=== PATIENT | female | born 1975 | race Caucasian/White ===

== ENCOUNTER 2021-07-06 20:56 | Emergency (ER) | payer BC ==
[2021-07-06 21:34] LABS: BASOPHILS # (AUTO) 0.1 10^3/uL (0.0-0.1); BASOPHILS % (AUTO) 1.1 %; EOSINOPHILS # (AUTO) 0.2 10^3/uL (0.0-0.7); EOSINOPHILS % (AUTO) 2.4 %; HCT - HEMATOCRIT 43.2 % (37.0-47.0); HGB - HEMOGLOBIN 13.8 g/dL (12.0-16.0); LYMPHOCYTES # (AUTO) 3.5 10^3/uL (1.5-3.5); LYMPHOCYTES % (AUTO) 48.8 %; MEAN CORPUSCULAR HEMOGLOBIN 28.9 pg (27.0-31.0); MEAN CORPUSCULAR HGB CONC 31.9 g/dL (32.0-36.0); MEAN CORPUSCULAR VOLUME 90.4 fL (81.0-99.0); MEAN PLATELET VOLUME 11.1 fL (7.9-10.8); MONOCYTES # (AUTO) 0.5 10^3/uL (0.0-1.0); MONOCYTES % (AUTO) 6.8 %; NEUTROPHILS # (AUTO) 2.9 10^3/uL (1.5-6.6); NEUTROPHILS % (AUTO) 40.8 %; PLT - PLATELET COUNT 270 10^3/uL (130-450); RED BLOOD COUNT 4.78 10^6/uL (4.20-5.40); RED CELL DISTRIBUTION WIDTH 13.7 % (12.0-15.0); WHITE BLOOD COUNT 7.2 x10^3/uL (4.8-10.8)
[2021-07-06 21:40] LABS: BILIRUBIN,URINE NEGATIVE (NEGATIVE); GLUCOSE, URINE (UA) NEGATIVE (NEGATIVE); KETONES,URINE (UA) NEGATIVE (NEGATIVE); LEUKOCYTE ESTERASE, URINE NEGATIVE (NEGATIVE); NITRITE,URINE NEGATIVE (NEGATIVE); OCCULT BLOOD,URINE SMALL (NEGATIVE); PROTEIN,URINE NEGATIVE (NEGATIVE); UROBILINOGEN,URINE 0.2 (NORMAL) E.U./dL (NORMAL)
[2021-07-06 21:41] LABS: CLARITY,URINE CLEAR (CLEAR); HCG UR QUAL NEGATIVE
[2021-07-06 21:46] LABS: ALBUMIN 4.4 g/dL (3.2-5.5); ALBUMIN/GLOBULIN RATIO 1.3 (1.0-2.2); BILIRUBIN,TOTAL 0.3 mg/dL (0.2-1.0); CALCIUM 9.5 mg/dL (8.5-10.3); POTASSIUM 3.3 mmol/L (3.5-5.0); TOTAL PROTEIN 7.8 g/dL (6.7-8.2)
[2021-07-06 22:00] LABS: BACTERIA,URINE Few /HPF (None Seen); SQUAMOUS EPITHELIAL CELL,UR FEW Squamous (<= Few); WBC,URINE 0-3 /HPF (0-5)
--- NOTE | 2021-07-06 22:16 | ED Physician Documentation ---
PD HPI BACK PAIN - Stated complaint Stated Complaint: LOW BACK PX - Chief complaint Chief Complaint: Abd Pain - History obtained from History obtained from: Patient - History of Present Illness Timing - onset: How many hours ago (2) Timing - details: Abrupt onset Pain level now: 6 Location: Left Quality: Pain Associated symptoms: No: Fever, Hematuria Improves with: Nothing Worsened by: Other (no exacerbating factors) Similar symptoms before: Has not had sx before Recently seen: Not recently seen - Additional information Additional information: c/o sudden onset left flank pain 2 hours [employer] while at home at rest, eating dinner. Nausea but no vomiting. Has not had this pain before. The pain is waxing and waning without apparent exacerbating nor ameliorating factors. Review of Systems Constitutional: reports: Reviewed and negative Cardiac: reports: Reviewed and negative Respiratory: reports: Reviewed and negative GI: reports: Abdominal Pain (left flank pain), Nausea. denies: Vomiting : denies: Dysuria, Frequency, Hematuria PD PAST MEDICAL HISTORY - Past Medical History Past Medical History: Yes Endocrine/Autoimmune: HyPOthyroidism - Past Surgical History Past Surgical History: No - Present Medications Home Medications: Ambulatory Orders Medication Instructions Recorded Confirmed Cranberry Fruit Extract [Cranberry] 07/06/21 Etonogestrel/Ethinyl Estradiol 07/06/21 [Nuvaring Vaginal Ring] Levothyroxine [Synthroid] 100 mcg PO DAILY 07/06/21 07/06/21 Ondansetron Odt [Zofran] 4 mg TL Q6H PRN #14 tablet 07/07/21 Tamsulosin [Flomax] 0.4 mg PO DAILY #10 cap 07/07/21 oxyCODONE/ACET 5/325 [Percocet 5 1 - 2 each PO Q6H PRN #20 tablet 07/07/21 mg/325 mg] - Allergies Allergies/Adverse Reactions: Allergies Allergy/AdvReac Type Severity Reaction Status Date / Time Penicillins Allergy Hives Verified 07/06/21 21:57 Sulfa (Sulfonamide Allergy Hives Verified 07/06/21 21:02 Antibiotics) - Living Situation Living Arrangement: reports: At home - Social History Does the pt smoke?: No Smoking Status: Never smoker PD ED PE NORMAL - Vitals Vital signs reviewed: Yes - General General: Alert and oriented X 3, Well developed/nourished, Other (appears uncomfortable, mild/moderate painful distress that waxes and wanes during H+P) - HEENT HEENT: Moist mucous membranes - Cardiac Cardiac: RRR, No murmur - Respiratory Respiratory: No respiratory distress, Clear bilaterally - Abdomen Abdomen: Soft, Non tender, Non distended - Back Back: No CVA TTP - Derm Derm: Normal color, Warm and dry, No rash Results - Vitals Vitals: Vital Signs - 24 hr 07/06/21 07/06/21 07/06/21 20:58 21:52 22:50 Temperature 36.4 C L Heart Rate 88 93 100 Respiratory 16 18 20 Rate Blood Pressure 159/90 H 124/86 H 140/86 H O2 Saturation 100 96 98 07/07/21 01:05 Temperature 36.6 C Heart Rate 70 Respiratory 14 Rate Blood Pressure 124/70 O2 Saturation 98 Oxygen O2 Source Room air - Labs Labs: Laboratory Tests 07/06/21 07/06/21 07/06/21 21:12 21:27 21:27 WBC 7.2 RBC 4.78 Hgb 13.8 Hct 43.2 MCV 90.4 MCH 28.9 MCHC 31.9 L RDW 13.7 Plt Count 270 MPV 11.1 H Neut # (Auto) 2.9 Lymph # (Auto) 3.5 [place] # (Auto) 0.5 Eos # (Auto) 0.2 Baso # (Auto) 0.1 Absolute Nucleated RBC 0.00 Nucleated RBC % 0.0 Sodium 138 Potassium 3.3 L Chloride 103 Carbon Dioxide 23 Anion Gap 12.0 BUN 15 Creatinine 1.0 Estimated GFR (MDRD) 60 L Glucose 93 Calcium 9.5 Total Bilirubin 0.3 AST 18 ALT 19 Alkaline Phosphatase 38 L Total Protein 7.8 Albumin 4.4 Globulin 3.4 Albumin/Globulin Ratio 1.3 Lipase 39 Urine Color YELLOW Urine Clarity CLEAR Urine pH 6.0 Ur Specific [place] <=1.005 Urine Protein NEGATIVE Urine Glucose (UA) NEGATIVE Urine Ketones NEGATIVE Urine Occult Blood SMALL H Urine Nitrite NEGATIVE Urine Bilirubin NEGATIVE Urine Urobilinogen 0.2 (NORMAL) Ur Leukocyte Esterase NEGATIVE Urine RBC 6-10 H Urine WBC 0-3 Ur Squamous Epith Cells FEW Squamous Urine Bacteria Few Ur Microscopic Review INDICATED Urine Culture Comments NOT INDICATED Urine HCG, Qual NEGATIVE - Rads (name of study) CT A/P Radiology: Prelim report reviewed, See rad report PD MEDICAL DECISION MAKING - ED course Complexity details: reviewed results, re-evaluated patient, considered differential, d/w patient ED course: left flank pain x 2 hours and microscopic hematuria on UA results (without other abnormalities); LMP [address] A/P demonstrates 3 mm left UVJ calculus. She is given IM toradol, IM dilaudid, and TL zofran. On reevaluation, she is resting comfortably and reports excellent symptom relief with these measures. Results reviewed with patient, discussed prognosis and return precautions. She is given a strainer and take-home packs of percocet and zofran. She is also given tamsulosin in ED. Prescriptions for percocet, zofran, and tamsulosin are electronically submitted to her pharmacy of choice. Departure - Departure Disposition: Home, Self Care Clinical Impression: Renal colic on left side Condition: Good Instructions: ED Stone Renal W Colic Follow-Up: Ivan Oliveira MD [Primary Care Provider] - Prescriptions: Tamsulosin [Flomax] 0.4 mg PO DAILY #10 cap oxyCODONE/ACET 5/325 [Percocet 5 mg/325 mg] 1 - 2 each PO Q6H PRN #20 tablet PRN Reason: Pain Ondansetron Odt [Zofran] 4 mg TL Q6H PRN #14 tablet PRN Reason: Nausea / Vomiting Comments: Prescriptions for percocet (narcotic pain medication), ondansetron (anti nausea medication) and tamsulosin (helps pass kidney stones) have been electronically submitted to [facility] pharmacy in [place]. You have a small (3 mm) kidney stone in the left ureter, which is the conduit from the kidney to the bladder. This is a relatively small stone and it is at the end of the ureter, so it is likely to pass on its own rather than needing a procedure to have it removed. You have been provided a strainer, and you can strain your urine until you see the stone. You should contact your primary care provider to arrange for follow up; they might order other tests and they might refer you to a urologist. If you pass the stone, keep it in a container and contact your primary care provider to ask if they want to have the kidney stone sent to a lab for analysis. Discharge Date/Time: 07/07/21 01:10
[2021-07-06] MEDS ORDERED: ONDANSETRON ODT 4 MG TABLET TL STA (22:31)
[2021-07-06] MEDS ORDERED: KETOROLAC 60 MG/2 ML VIAL IM STA (22:31)
[2021-07-06] MEDS ORDERED: HYDROmorphone 1 MG/ML CARPUJECT IM STA (22:31)
--- NOTE | 2021-07-06 23:37 | CT Report ---
PROCEDURE: Abdomen/Pelvis WO INDICATIONS: left flank pain TECHNIQUE: Noncontrast 5 mm thick sections acquired from the diaphragms to the symphysis. 5 mm coronal and sagi ttal reformats were then performed. For radiation dose reduction, the following was used: automated exposure control, adjustment of mA and/or kV according to patient size. COMPARISON: None. FINDINGS: Image quality: Excellent. ABDOMEN: Lung bases: Lung bases are clear. Heart size is normal. Solid organs: Liver and spleen are normal in size. Gallbladder Pancreas is normal in contours. No adrenal nodules. Kidneys are normal in size, without right-sided hydronephrosis or nephrolithia sis. There is, however, mild left-sided hydronephrosis and a punctate mid kidney calculus within the mildl y dilated collecting system. The ureter also is dilated on the left to a mild degree to the lower mar gin of the low left ureter, where a impacted 3 mm calculus can be seen. Peritoneum and bowel: Unenhanced bowel loops demonstrate normal wall thickness and caliber. No free fluid or air. Nodes and vessels: No retroperitoneal or mesenteric adenopathy by size criteria. Aorta and inferior vena cava are normal in caliber. Miscellaneous: No ventral hernias. PELVIS: Genitourinary: Bladder wall thickness is normal. Miscellaneous: No inguinal hernias or adenopathy. Bones: No suspicious bony lesions. No vertebral body compression fractures. IMPRESSION: Impacted distal left ureteral 3 mm calculus causing mild hydronephrosis and hydroureter on the left. There is also a punctate left collecting system nonobstructive calculus estimated to measure approxim ately 1 mm. No other abnormality is found. Reviewed by: Kavin Francis MD on 07/06/2021 11:39 PM PDT Approved by: Kavin Francis MD on 07/06/2021 11:39 PM PDT Station ID: [id number]
[2021-07-07] MEDS ORDERED: TAMSULOSIN 0.4 MG CAPSULE PO STA (00:09)
[2021-07-07] MEDS ORDERED: ONDANSETRON ODT 4 MG Prepack 2 TL PRN (00:48)
[2021-07-07] MEDS ORDERED: oxyCODONE/ACET 5/325 Prepack 4 PO STA (00:48)
[2021-07-07 01:06] VITALS: BP 124/70
== END 2021-07-07 01:10 | disposition home or self-care (01) ==
LOC: ED 20:56
DX: N13.2 Hydronephrosis with renal and ureteral calculous obstruction (principal); R31.29 Other microscopic hematuria
CPT/HCPCS: 36415; 74176; 80053; 81001; 81025; 83690; 85025; 96372; 99284; A9270; J1170; Q0162; 81003; 87086

== ENCOUNTER 2021-07-08 11:08 | Emergency (ER) | payer BC ==
[2021-07-08] MEDS ORDERED: ONDANSETRON ODT 4 MG TABLET TL STA (11:19)
[2021-07-08 11:30] LABS: BASOPHILS % (AUTO) 0.2 %; EOSINOPHILS % (AUTO) 0.2 %; HCT - HEMATOCRIT 41.9 % (37.0-47.0); HGB - HEMOGLOBIN 13.7 g/dL (12.0-16.0); LYMPHOCYTES # (AUTO) 1.7 10^3/uL (1.5-3.5); LYMPHOCYTES % (AUTO) 13.2 %; MEAN CORPUSCULAR HEMOGLOBIN 28.9 pg (27.0-31.0); MEAN CORPUSCULAR HGB CONC 32.7 g/dL (32.0-36.0); MEAN CORPUSCULAR VOLUME 88.4 fL (81.0-99.0); MEAN PLATELET VOLUME 10.7 fL (7.9-10.8); MONOCYTES # (AUTO) 0.9 10^3/uL (0.0-1.0); MONOCYTES % (AUTO) 6.9 %; NEUTROPHILS # (AUTO) 10.2 10^3/uL (1.5-6.6); NEUTROPHILS % (AUTO) 79.2 %; PLT - PLATELET COUNT 240 10^3/uL (130-450); RED BLOOD COUNT 4.74 10^6/uL (4.20-5.40); RED CELL DISTRIBUTION WIDTH 13.7 % (12.0-15.0); WHITE BLOOD COUNT 12.8 x10^3/uL (4.8-10.8)
[2021-07-08 11:41] LABS: ALBUMIN 4.1 g/dL (3.2-5.5); ALBUMIN/GLOBULIN RATIO 1.2 (1.0-2.2); CALCIUM 8.9 mg/dL (8.5-10.3); CREATININE 1.1 mg/dL (0.4-1.0); POTASSIUM 3.8 mmol/L (3.5-5.0); TOTAL PROTEIN 7.5 g/dL (6.7-8.2)
[2021-07-08] MEDS ORDERED: HYDROmorphone 1 MG/ML CARPUJECT IVP STA (12:07)
[2021-07-08] MEDS ORDERED: KETOROLAC 30 MG/ML VIAL IVP STA (12:07)
[2021-07-08] MEDS ORDERED: SODIUM CHLORIDE 0.9% 1,000 ML IV STA (12:08)
[2021-07-08 12:12] LABS: BILIRUBIN,URINE NEGATIVE (NEGATIVE); CLARITY,URINE CLEAR (CLEAR); GLUCOSE, URINE (UA) NEGATIVE (NEGATIVE); KETONES,URINE (UA) 40 mg/dL (NEGATIVE); LEUKOCYTE ESTERASE, URINE NEGATIVE (NEGATIVE); NITRITE,URINE NEGATIVE (NEGATIVE); OCCULT BLOOD,URINE MODERATE (NEGATIVE); PROTEIN,URINE NEGATIVE (NEGATIVE); UROBILINOGEN,URINE 0.2 (NORMAL) E.U./dL (NORMAL)
[2021-07-08 12:14] LABS: HCG UR QUAL NEGATIVE
--- NOTE | 2021-07-08 12:21 | ED Physician Documentation ---
History of Present Illness - Stated complaint Stated Complaint: RT SIDE PX - Chief complaint Chief Complaint: Abd Pain - History obtained from History obtained from: Patient - Additonal information Additional information: The patient comes to the emergency department chief complaint of left flank and lower quadrant pain that has been going on for the last 2 days. Patient was seen here 2 days ago and diagnosed with a distal left ureteral calculus. It was found to be about 3 mm in diameter and nearly at the UVJ. The patient was placed on Percocet and Flomax to take at home, and she states that the Percocet will work but as soon as it wears off she is back in severe pain. She states she just cannot take it anymore and states that "if this keeps going on, I will not survive". The patient states that she has not had any fevers. She has occasional chills. No dysuria. No vomiting though she has had a little nausea. She has not made a urology follow-up appointment. No other complaints at this time. Review of Systems Ten Systems: 10 systems reviewed and negative Constitutional: reports: Reviewed and negative Eyes: reports: Reviewed and negative Ears: reports: Reviewed and negative Nose: reports: Reviewed and negative Throat: reports: Reviewed and negative Cardiac: reports: Reviewed and negative Respiratory: reports: Reviewed and negative GI: reports: Abdominal Pain (Flank), Nausea. denies: Vomiting : reports: Reviewed and negative. denies: Dysuria Skin: reports: Reviewed and negative Musculoskeletal: reports: Reviewed and negative Neurologic: reports: Reviewed and negative Psychiatric: reports: Reviewed and negative Endocrine: reports: Reviewed and negative Immunocompromised: reports: Reviewed and negative PD PAST MEDICAL HISTORY - Past Medical History Endocrine/Autoimmune: HyPOthyroidism - Past Surgical History Past Surgical History: No - Present Medications Home Medications: Ambulatory Orders Medication Instructions Recorded Confirmed Cranberry Fruit Extract [Cranberry] 07/06/21 Etonogestrel/Ethinyl Estradiol 07/06/21 [Nuvaring Vaginal Ring] Levothyroxine [Synthroid] 100 mcg PO DAILY 07/06/21 07/06/21 Ondansetron Odt [Zofran] 4 mg TL Q6H PRN #14 tablet 07/07/21 Tamsulosin [Flomax] 0.4 mg PO DAILY #10 cap 07/07/21 oxyCODONE/ACET 5/325 [Percocet 5 1 - 2 each PO Q6H PRN #20 tablet 07/07/21 mg/325 mg] Oxycodone HCl/Acetaminophen 1 - 2 each PO Q6H PRN #14 tablet 07/08/21 [Percocet 5-325 mg Tablet] - Allergies Allergies/Adverse Reactions: Allergies Allergy/AdvReac Type Severity Reaction Status Date / Time Penicillins Allergy Hives Verified 07/08/21 11:19 Sulfa (Sulfonamide Allergy Hives Verified 07/08/21 11:19 Antibiotics) - Social History Does the pt smoke?: No Smoking Status: Never smoker PD ED PE NORMAL - Vitals Vital signs reviewed: Yes - General General: Alert and oriented X 3, Well developed/nourished, Other (The patient appears moderately uncomfortable but otherwise no distress) - HEENT HEENT: Atraumatic, PERRL, EOMI, Moist mucous membranes - Neck Neck: Supple, no meningeal sign - Cardiac Cardiac: RRR, No murmur, Strong equal pulses - Respiratory Respiratory: No respiratory distress, Clear bilaterally - Abdomen Abdomen: Soft, Non distended, Other (Moderate tenderness left lower quadrant and flank.) - Back Back: No CVA TTP, No spinal TTP - Derm Derm: Normal color, Warm and dry, No rash - Extremities Extremities: No deformity, No edema - Neuro Neuro: Alert and oriented 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, 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, Normal speech - Psych Psych: Normal mood, Normal affect Results - Vitals Vitals: Vital Signs - 24 hr 07/08/21 07/08/21 07/08/21 11:17 13:05 15:00 Temperature 37 C Heart Rate 92 79 85 Respiratory 14 14 14 Rate Blood Pressure 114/78 121/79 118/71 O2 Saturation 100 97 99 07/08/21 15:36 Temperature 37.1 C Heart Rate 88 Respiratory 16 Rate Blood Pressure 122/80 O2 Saturation 98 Oxygen O2 Source Room air - Labs Labs: Laboratory Tests 07/08/21 07/08/21 07/08/21 11:25 11:25 12:06 WBC 12.8 H RBC 4.74 Hgb 13.7 Hct 41.9 MCV 88.4 MCH 28.9 MCHC 32.7 RDW 13.7 Plt Count 240 MPV 10.7 Neut # (Auto) 10.2 H Lymph # (Auto) 1.7 [place] # (Auto) 0.9 Eos # (Auto) 0.0 Baso # (Auto) 0.0 Absolute Nucleated RBC 0.00 Nucleated RBC % 0.0 Sodium 128 L Potassium 3.8 Chloride 95 L Carbon Dioxide 22 Anion Gap 11.0 BUN 8 Creatinine 1.1 H Estimated GFR (MDRD) 54 L Glucose 106 H Calcium 8.9 Total Bilirubin 1.0 AST 15 ALT 17 Alkaline Phosphatase 35 L Total Protein 7.5 Albumin 4.1 Globulin 3.4 Albumin/Globulin Ratio 1.2 Lipase 30 Urine Color YELLOW Urine Clarity CLEAR Urine pH 6.0 Ur Specific [place] <=1.005 Urine Protein NEGATIVE Urine Glucose (UA) NEGATIVE Urine Ketones 40 H Urine Occult Blood MODERATE H Urine Nitrite NEGATIVE Urine Bilirubin NEGATIVE Urine Urobilinogen 0.2 (NORMAL) Ur Leukocyte Esterase NEGATIVE Urine RBC 0-5 Urine WBC 0-3 Ur Squamous Epith Cells FEW Squamous Urine Bacteria Few Ur Microscopic Review INDICATED Urine Culture Comments NOT INDICATED Urine HCG, Qual NEGATIVE - Rads (name of study) CT abdomen and pelvis without contrast Radiology: Final report received, EMP read indepedently, See rad report (Persistence of 3 mm UVJ stone which is obstructing. Significant interval development of stranding and fluid around left kidney concerning for calyceal rupture.) PD MEDICAL DECISION MAKING - ED course Complexity details: reviewed old records, reviewed results, re-evaluated patient, considered differential, d/w patient ED course: I reviewed the patient's prior records, including her CT results. I did not expect that there should be any major complication with a stone of that size, as it had already made its way to the UVJ. The patient was having a difficult time handling the pain, even with analgesia at home, and I did recheck a urinalysis and labs to be sure no other issues had come up in the meantime. The patient was treated symptomatically with IV fluids, Toradol, Zofran, and Dilaudid. The patient CT scan showed that the stone was obstructive, despite its small size, and also showed findings concerning for calyceal rupture. I did consult urology at [facility] and spoke with attending physician Dr. Escalona. He viewed the patient's images and discussed the case with me and stated that many calyceal ruptures are managed conservatively and that looking at this patient's CT results, it does not appear she has a large urinoma, and as such, can be considered continued to be managed conservatively. He recommended continuation of Flomax and analgesia and follow-up within the next couple of weeks with urology. I have discussed the situation with the patient who is feeling much better after symptomatic intervention. She understands the need for follow-up and we have discussed the usual indications for return. Departure - Departure Disposition: 01 Home, Self Care Clinical Impression: Kidney stone on left side Condition: Stable Instructions: ED Stone Renal W Colic Prescriptions: Oxycodone HCl/Acetaminophen [Percocet 5-325 mg Tablet] 1 - 2 each PO Q6H PRN #14 tablet PRN Reason: pain Comments: Your CT scan shows your kidney stone to still be in the same place the entrance to the bladder. This is the toughest spot for a kidney stone to pass and is most likely the cause of the ongoing pain. Your CT did also show that most likely, one of the small collecting chambers of your kidney has ruptured. Because of this, your case was discussed with Dr. Escalona of urology 3 [facility]. He has viewed your CT images and has stated that the findings are not consistent with a severe rupture, and can be managed conservatively, meaning that there is no surgical procedure needed to remedy the problem. He would like you to continue to focus on pain control and drinking plenty of fluids to help the stone to pass. He would also like you to follow-up locally with a urologist. You may call the numbers given for local urology offices to set up an appointment. If you develop fevers or severe pain with urination, please return for further evaluation. Discharge Date/Time: 07/08/21 15:46
[2021-07-08 12:27] LABS: RBC,URINE 0-5 /HPF (0-5); SQUAMOUS EPITHELIAL CELL,UR FEW Squamous (<= Few); WBC,URINE 0-3 /HPF (0-5)
[2021-07-08 12:28] LABS: BACTERIA,URINE Few /HPF (None Seen)
--- NOTE | 2021-07-08 13:26 | CT Report ---
PROCEDURE: Abdomen/Pelvis WO INDICATIONS: L urinary calculus, feels much worse TECHNIQUE: Noncontrast 5 mm thick sections acquired from the diaphragms to the symphysis. 5 mm coronal and sagi ttal reformats were then performed. For radiation dose reduction, the following was used: automated exposure control, adjustment of mA and/or kV according to patient size. COMPARISON: 06/28/2021 FINDINGS: Image quality: Excellent. ABDOMEN: Lung bases: Lung bases are clear. Heart size is normal. Solid organs: Liver and spleen are normal in size. Gallbladder wall does not appear thickened. P ancreas is normal in contours. No adrenal nodules. There is again seen an obstructing stone at the left ureterovesicular junction that measures 3 mm, as on series 3 image 76. There is associated left-sided hydroureter and hydronephrosis. Prominent left- sided perinephric fat stranding is seen, which is clearly worse on the current study than on the prio r. Nonobstructing left-sided kidney stones are seen that measure up to 2 mm. Likely tiny 1 mm right-side d kidney stones can be seen. No right-sided hydronephrosis is seen. Peritoneum and bowel: Unenhanced bowel loops demonstrate normal wall thickness and caliber. No free fluid or air. Nodes and vessels: No retroperitoneal or mesenteric adenopathy by size criteria. Aorta and inferior vena cava are normal in caliber. Miscellaneous: A mild fat-containing periumbilical hernia can be seen. PELVIS: Genitourinary: Bladder wall thickness is normal. Miscellaneous: No inguinal hernias or adenopathy. Bones: No suspicious bony lesions. No vertebral body compression fractures. IMPRESSION: There is again seen and obstructing stone at the left ureterovesicular junction measuring 3 mm. Since the prior recent examination dated 06/28/2021, there has been interval development of prominent left-sided perinephric fat stranding. Please consider a ruptured calyx. Nonobstructive bilateral renal stones are seen, left worse than right. Incidental note is made of: Mild fat-containing periumbilical hernia Reviewed by: Wilbur Avila MD on 07/08/2021 12:25 PM AKDT Approved by: Wilbur Avila MD on 07/08/2021 12:25 PM AKDT Station ID: [id number]
[2021-07-08] MEDS ORDERED: HYDROmorphone 0.5 MG/0.5 ML SYRINGE IVP STA (15:10)
[2021-07-08] MEDS ORDERED: ONDANSETRON 4 MG/2 ML VIAL IVP STA (15:10)
[2021-07-08 15:58] VITALS: BP 122/80
== END 2021-07-08 15:46 | disposition home or self-care (01) ==
LOC: ED 11:08
DX: N20.2 Calculus of kidney with calculus of ureter (principal)
CPT/HCPCS: 36415; 74176; 80053; 81001; 81025; 83690; 85025; 96361; 96374; 96375; 96376; 99284; J1170; Q0162; 81003; 87086

== ENCOUNTER 2022-03-26 22:21 | Emergency (ER) | payer BC ==
--- NOTE | 2022-03-26 23:42 | ED Physician Documentation ---
History of Present Illness - Stated complaint Stated Complaint: CONTACT WITH BAT - Chief complaint Chief Complaint: General - History obtained from History obtained from: Patient - History of Present Illness Timing: Today - Additonal information Additional information: Patient woke from sleep at home at approximately 10 PM tonight to find that her cat had a live bat in its mouth. The cat was in the same room (bedroom) where patient had been sleeping. Patient does not have any recollection of direct contact with this bat. She says the bat was still alive and she was able to get the cat to let go of the bat, which patient then swept out of the house without direct contact. Patient is asymptomatic, but presents due to concern of bat exposure (specifically risk of rabies with this exposure) Review of Systems Skin: denies: Abrasion (s), Laceration (s), Bite / sting PD PAST MEDICAL HISTORY - Past Medical History Past Medical History: Yes Cardiovascular: None Respiratory: None Neuro: None Endocrine/Autoimmune: HyPOthyroidism GI: None ICE SCULPTOR: None : None HEENT: None Psych: None Musculoskeletal: None Derm: None - Past Surgical History Past Surgical History: No - Present Medications Home Medications: Ambulatory Orders Medication Instructions Recorded Confirmed Cranberry Fruit Extract [Cranberry] 07/06/21 Etonogestrel/Ethinyl Estradiol 07/06/21 [Nuvaring Vaginal Ring] Levothyroxine [Synthroid] 100 mcg PO DAILY 07/06/21 07/06/21 Ondansetron Odt [Zofran] 4 mg TL Q6H PRN #14 tablet 07/07/21 Tamsulosin [Flomax] 0.4 mg PO DAILY #10 cap 07/07/21 oxyCODONE/ACET 5/325 [Percocet 5 1 - 2 each PO Q6H PRN #20 tablet 07/07/21 mg/325 mg] Oxycodone HCl/Acetaminophen 1 - 2 each PO Q6H PRN #14 tablet 07/08/21 [Percocet 5-325 mg Tablet] - Allergies Allergies/Adverse Reactions: Allergies Allergy/AdvReac Type Severity Reaction Status Date / Time Penicillins Allergy Hives Verified 03/26/22 22:37 Sulfa (Sulfonamide Allergy Hives Verified 03/26/22 22:37 Antibiotics) - Social History Does the pt smoke?: No Smoking Status: Never smoker Does the pt drink ETOH?: No Does the pt have substance abuse?: No - Immunizations Immunizations: TDAP >10years/unknown - POLST Patient has POLST: No PD ED PE NORMAL - Vitals Vital signs reviewed: Yes - General General: Alert and oriented X 3, No acute distress, Well developed/nourished - Neuro Neuro: Alert and oriented X 3 Results - Vitals Vitals: Vital Signs - 24 hr 03/27/22 01:05 Temperature 37.4 C Heart Rate 83 Respiratory 16 Rate Blood Pressure 130/94 H O2 Saturation 98 Oxygen O2 Source Room air PD Medical Decision Making - ED course Complexity details: considered differential, d/w patient ED course: We discussed risk of this exposure, specifically of rabies. I advised her that this was a particularly low-risk exposure given that there was no bite, scratch, nor mucous membrane exposure (no direct contact at all) with this bat, but that the only realistic concern would be that she woke up to find the bat in the same room as where she was sleeping; theoretically, though very unlikely, she could have had direct contact with the bat when she was sleeping. The likelihood of the exposure has to be weighed against the near-universal fatality of rabies infections and considering the effectiveness of the rabies vaccination series when given in a timely manner with such exposures. The result of this discussion of risks/benefits was that she would like to have the rabies vaccination series; the first dose is given in the ED and she is advised to seek follow up for the remaining doses in the series (day 3, 7, and 14). Return precautions discussed. Departure - Departure Disposition: 01 Home, Self Care Clinical Impression: Exposure to bat without known bite Condition: Good Instructions: Rabies Vaccine suspension for injection Comments: That sounds like you have had a low risk exposure to a bat. More concerning scenarios would be if you had direct contact with the bat, particularly if you were scratched or bitten. However, since you woke up with the bat in the same room that you are asleep and, though unlikely, it would be possible that you did have an exposure while asleep. You are given the first dose of rabies vaccination in the emergency department, and you will need 3 more doses (today's dose is considered day 0; you will need doses on day 3, day 7, and day 14). Discharge Date/Time: 03/27/22 01:07
[2022-03-27] MEDS ORDERED: RABIES VACCINE 2.5 UNIT SYRINGE IM ONE (00:20)
[2022-03-27 01:06] VITALS: BP 130/94
== END 2022-03-27 01:07 | disposition home or self-care (01) ==
LOC: ED 22:21
DX: Z20.3 Contact with and (suspected) exposure to rabies (principal); Z23 Encounter for immunization; Z71.85 Encounter for immunization safety counseling
CPT/HCPCS: 90471; 99282; 99283

== ENCOUNTER 2022-03-29 15:35 | Emergency (ER) | payer BC ==
[2022-03-29] MEDS ORDERED: RABIES VACCINE 2.5 UNIT SYRINGE IM ONE (15:38)
[2022-03-29 15:42] VITALS: BP 120/80
--- NOTE | 2022-03-29 16:03 | ED Physician Documentation ---
History of Present Illness - Stated complaint Stated Complaint: RABBIES SHOT - Chief complaint Chief Complaint: Exposure - History obtained from History obtained from: Patient - History of Present Illness Pain level max: 0 Pain level now: 0 - Additonal information Additional information: Patient was here for her second rabies vaccination. No complaints. 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 : None HEENT: None Psych: None Musculoskeletal: None Derm: None - Past Surgical History Past Surgical History: No - Present Medications Home Medications: Ambulatory Orders Medication Instructions Recorded Confirmed Cranberry Fruit Extract [Cranberry] 07/06/21 Etonogestrel/Ethinyl Estradiol 07/06/21 [Nuvaring Vaginal Ring] Levothyroxine [Synthroid] 100 mcg PO DAILY 07/06/21 07/06/21 Ondansetron Odt [Zofran] 4 mg TL Q6H PRN #14 tablet 07/07/21 Tamsulosin [Flomax] 0.4 mg PO DAILY #10 cap 07/07/21 oxyCODONE/ACET 5/325 [Percocet 5 1 - 2 each PO Q6H PRN #20 tablet 07/07/21 mg/325 mg] Oxycodone HCl/Acetaminophen 1 - 2 each PO Q6H PRN #14 tablet 07/08/21 [Percocet 5-325 mg Tablet] - Allergies Allergies/Adverse Reactions: Allergies Allergy/AdvReac Type Severity Reaction Status Date / Time Penicillins Allergy Hives Verified 03/29/22 15:42 Sulfa (Sulfonamide Allergy Hives Verified 03/29/22 15:42 Antibiotics) - Social History Does the pt smoke?: No Smoking Status: Never smoker Does the pt drink ETOH?: No Does the pt have substance abuse?: No - Immunizations Immunizations: TDAP >10years/unknown - POLST Patient has POLST: No PD ED PE NORMAL - Vitals Vital signs reviewed: Yes - General General: Alert and oriented X 3, No acute distress - HEENT HEENT: Moist mucous membranes - Derm Derm: Warm and dry - Neuro Neuro: Alert and oriented X 3 - Psych Psych: Normal mood, Normal affect Results - Vitals Vitals: Vital Signs - 24 hr 03/29/22 03/29/22 15:39 16:03 Temperature 36.9 C Heart Rate 92 Respiratory 18 Rate Blood Pressure 120/80 O2 Saturation 100 Oxygen O2 Source Room air PD Medical Decision Making - ED course Complexity details: considered differential, d/w patient ED course: Patient was given her second rabies vaccination. No complications. Patient asymptomatic. Patient will return for her third and fourth vaccinations as scheduled. This document was made in part using voice recognition software. While efforts are made to proofread this document, sound alike and grammatical errors may occur. Departure - Departure Disposition: 01 Home, Self Care Clinical Impression: Encounter for repeat administration of rabies vaccination Condition: Good Instructions: Rabies Vaccine suspension for injection Follow-Up: Ivan Oliveira MD [Primary Care Provider] - Comments: You received your second rabies vaccination today. You will receive a total of 4 vaccinations. Day 0, 3, 7, and day 14. The [facility] clinic fax is [phone]. Forms: Rabies Vaccine Series ([facility]) Discharge Date/Time: 03/29/22 16:05
== END 2022-03-29 16:05 | disposition home or self-care (01) ==
LOC: ED 15:35
DX: Z29.14 Encounter for prophylactic rabies immune globulin (principal); Z23 Encounter for immunization; Z71.85 Encounter for immunization safety counseling
CPT/HCPCS: 90471; 99282